=== PATIENT | male | born 1985 | race Two or more races ===

== ENCOUNTER 2020-11-18 09:47 | Outpatient (RCR) | payer OTHER, SELFPAY ==
[2020-11-18] MEDS: COVID-19 VACC, MRNA(PFIZER)/PF 30 MCG/0.3 ML SYRINGE IM (20:00)
== END 2020-11-18 23:59 ==
LOC: IMMUN 09:47
PROVIDERS: Referring Provider Family Medicine; Visit Provider Family Medicine
DX: Z23 Encounter for immunization (principal)
CPT/HCPCS: 0001A; 91300